=== PATIENT | male | born 1955 | race African-American/Black ===

== ENCOUNTER 2017-03-08 08:36 | Emergency (ER) | payer MEDICAID ==
[~2017-03-08] VITALS: Ht 162.6 cm; Wt 79.5 kg
[~2017-03-08 08:36] MED LIST: DICL75 PO; METO25 PO; ROBA750T3 PO
[2017-03-08 08:39] VITALS: BP 164/108; PULSE 84; TEMP 97.5; O2SAT 98
[2017-03-08 08:47] VITALS: BP 140/97; PULSE 80; RESP 16
[2017-03-08 09:18] VITALS: BP 153/104; PULSE 82; RESP 18; O2SAT 98
[2017-03-08 09:31] VITALS: BP 131/92; PULSE 79; RESP 18; O2SAT 98
--- NOTE | 2017-03-08 09:41 | PD ---
HPI Chief Complaint: Hypertension Time Seen by Provider: 09:36 Travel History International Travel<30 days: No Contact w/Intl Traveler<30days: No Traveled to known affect area: No History of Present Illness HPI This is a 41-year-old male who presents to the emergency department concerned that his blood pressure may be high. He was having headaches yesterday described in the back of his head, intermittent, mild, with no associated numbness, weakness, difficulty walking or difficulty talking. He is supposed to take metoprolol for his blood pressure. He currently doesn't have a primary care physician. PFSH Past Medical History Blood Disorders: No Anxiety: No Depression: Yes Cancer: No Cardiovascular Problems: Yes (HTN) Chemotherapy: No Diabetes: No Diminished Hearing: No Endocrine: No Genitourinary: No Hypertension: Yes Immune Disorder: No Implanted Vascular Access Dvce: Yes Musculoskeletal: No Neurologic: No Psychiatric: Yes Reproductive: No Respiratory: No Immunizations Current: No Radiation Therapy: No Renal Failure: Yes Thyroid Disease: No Past Surgical History Surgical History: No Previous Surgery Abdominal Surgery: No Cardiac Surgery: No Ear Surgery: No Endocrine Surgery: No Eye Surgery: No Genitourinary Surgery: No Gynecologic Surgery: No Oral Surgery: No Thoracic Surgery: No Social History Alcohol Use: Yes (OCC) Tobacco Use: No Substance Use: No Allergies-Medications (Allergen,Severity, Reaction): Coded Allergies: No Known Allergies (Verified , 03/08/17) Reported Meds & Prescriptions Reported Meds & Active Scripts Active Review of Systems Except as stated in HPI: all other systems reviewed are Neg Physical Exam Narrative GENERAL:Well appearing, no acute distress SKIN: Focused skin assessment warm and dry. HEAD: Atraumatic. Normocephalic. EYES: Pupils equal and round. No injection or drainage. ENT: Moist mucous membranes NECK: Trachea midline. CARDIOVASCULAR: Regular rate and rhythm. No murmur appreciated. RESPIRATORY: Clear to auscultation. Breath sounds equal bilaterally. GASTROINTESTINAL: Abdomen soft, non-tender, nondistended. MUSCULOSKELETAL: No obvious deformities. NEUROLOGICAL: Awake and alert. No obvious cranial nerve deficits. Moving all extremities. PSYCHIATRIC: Appropriate mood and affect; insight and judgment normal. Data Data Last Documented VS Vital Signs Date Time Temp Pulse Resp B/P Pulse Ox O2 Delivery O2 Flow Rate FiO2 03/08/17 09:31 79 18 131/92 98 Room Air 03/08/17 08:39 97.5 MDM Medical Decision Making Medical Screen Exam Complete: Yes Emergency Medical Condition: Yes Interpretation(s) Afebrile, mild hypertension improved in the ER Differential Diagnosis Hypertension, hypertensive urgency, hypertensive emergency, subarachnoid hemorrhage Narrative Course This is a 61-year-old male who presents to the emergency department reporting high blood pressure and headache. The patient currently says he feels fine. His blood pressure is 130/90. I think he is appropriate to follow up with a primary care physician. I don't think this reflects an emergency at this time. His normal neurologic exam. Patient was discharged. Diagnosis Primary Impression: Hypertension Qualified Code: I10 - Essential hypertension Patient Instructions: General Instructions Additional Instructions: If you develop severe chest pain, shortness of breath, sweating, lightheadedness , dizziness or difficulty breathing return to the emergency department immediately. Followup with your primary care physician in 2-3 days if your symptoms are not resolved. Med/Other Pt SpecificInfo: No Change to Meds Disposition: 01 DISCHARGE HOME Condition: Stable Samreen Rucker MD Mar 08, 2017 09:40
== END 2017-03-08 10:07 | disposition home or self-care (01) ==
LOC: NEPD 08:36
DX: I10 Essential (primary) hypertension (principal); R51 Headache; Z87.448 Personal history of other diseases of urinary system; Z86.59 Personal history of other mental and behavioral disorders
CPT/HCPCS: 99283

== ENCOUNTER 2017-09-21 09:25 | Emergency (ER) | payer MEDICAID ==
[~2017-09-21] VITALS: Ht 160 cm; Wt 77.5 kg
[2017-09-21 09:27] VITALS: BP 174/102; PULSE 78; RESP 18; TEMP 98.1; O2SAT 95
[2017-09-21 10:16] VITALS: BP 158/102; PULSE 76; RESP 18; TEMP 98.1; O2SAT 96
[2017-09-21] MEDS ORDERED: METO25TA3 PO (10:26)
--- NOTE | 2017-09-21 10:27 | PD ---
HPI Chief Complaint: Headache Time Seen by Provider: 10:17 Travel History International Travel<30 days: No Contact w/Intl Traveler<30days: No Traveled to known affect area: No History of Present Illness HPI This is a 62-year-old male who presents to the emergency department with headaches that have been going on for 2 weeks, intermittent, gradual in onset, moderate severity, with no associated vomiting, photophobia, numbness or weakness. He says he was gets headaches when he is out of his blood pressure medication. He is not sure the name of his blood pressure medicine that he used to be on. He has [employer] but doesn't have a primary care doctor. He denies any chest pain or trouble breathing. PFSH Past Medical History Blood Disorders: No Anxiety: No Depression: Yes Cancer: No Cardiovascular Problems: Yes (HTN) Chemotherapy: No Diabetes: No Diminished Hearing: No Endocrine: No Genitourinary: No Headaches: Yes Hypertension: Yes Immune Disorder: No Implanted Vascular Access Dvce: Yes Musculoskeletal: No Neurologic: No Psychiatric: Yes Reproductive: No Respiratory: No Immunizations Current: No Radiation Therapy: No Renal Failure: Yes Thyroid Disease: No Tetanus Vaccination: Unknown Past Surgical History Abdominal Surgery: No Cardiac Surgery: No Ear Surgery: No Endocrine Surgery: No Eye Surgery: No Genitourinary Surgery: No Gynecologic Surgery: No Oral Surgery: No Thoracic Surgery: No Social History Alcohol Use: Yes (OCC) Tobacco Use: No Substance Use: No Allergies-Medications (Allergen,Severity, Reaction): Coded Allergies: No Known Allergies (Verified Adverse Reaction, Unknown, 09/21/17) Reported Meds & Prescriptions Reported Meds & Active Scripts Active No Active Prescriptions or Reported Medications Review of Systems Except as stated in HPI: all other systems reviewed are Neg Physical Exam Narrative GENERAL:Well appearing, no acute distress SKIN: Focused skin assessment warm and dry. HEAD: Atraumatic. Normocephalic. EYES: Pupils equal and round. No injection or drainage. ENT: Moist mucous membranes NECK: Trachea midline. CARDIOVASCULAR: Regular rate and rhythm. No murmur appreciated. RESPIRATORY: Clear to auscultation. Breath sounds equal bilaterally. GASTROINTESTINAL: Abdomen soft, non-tender, nondistended. MUSCULOSKELETAL: No obvious deformities. NEUROLOGICAL: Awake and alert. No obvious cranial nerve deficits. No dysarthria or aphasia. No upper or lower extremity drift. No upper extremity ataxia. PSYCHIATRIC: Appropriate mood and affect; insight and judgment normal. Data Data Last Documented VS Vital Signs Date Time Temp Pulse Resp B/P (MAP) Pulse Ox O2 Delivery O2 Flow Rate FiO2 09/21/17 10:16 98.1 76 18 158/102 (120) 96 Room Air MDM Medical Decision Making Medical Screen Exam Complete: Yes Emergency Medical Condition: Yes Interpretation(s) Afebrile, no tachycardia, hypertensive Differential Diagnosis Hypertension, hypertensive urgency, hypertensive emergency, subarachnoid hemorrhage, migraine headache, tension headache Narrative Course This is a 62-year-old male who presents to the emergency department with headache. He has been out of his blood pressure medications for several months and he thinks this is the reason for his headaches. I did offer him an IV and migraine medication but he declined. He has a normal neurologic exam. This seems to be a subacute headache. I think he will benefit from a refill from his blood pressure medication and I referred him to [facility]. Diagnosis Primary Impression: Hypertension Qualified Codes: I10 - Essential (primary) hypertension Med/Other Pt SpecificInfo: Prescription(s) given Scripts Metoprolol Tartrate (Metoprolol Tartrate) 25 Mg Tab 25 MG PO BID, #60 TAB 0 Refills Prov: Samreen Rucker MD 09/21/17 Disposition: 01 DISCHARGE HOME Condition: Stable Samreen Rucker MD Sep 21, 2017 10:27
[2017-09-21] MEDS ORDERED: METOPROLOL TARTRATE 25 MG TAB PO ONE (10:45)
[2017-09-21 11:33] VITALS: BP 143/90
== END 2017-09-21 11:34 | disposition home or self-care (01) ==
LOC: NEPD 09:25
DX: R51 Headache (principal); F32.9 Major depressive disorder, single episode, unspecified; I12.9 Hypertensive chronic kidney disease with stage 1 through stage 4 chronic kidney disease, or unspecified chronic kidney disease; N18.9 Chronic kidney disease, unspecified
CPT/HCPCS: 99283

== ENCOUNTER 2018-02-20 10:10 | Emergency (ER) | payer MEDICAID ==
[~2018-02-20] VITALS: Ht 157.5 cm; Wt 80.0 kg
[~2018-02-20 10:10] MED LIST changes: -DICL75 PO; -METO25 PO; +METO25TA3 PO; -ROBA750T3 PO
[2018-02-20 10:30] VITALS: BP 155/102; PULSE 95; RESP 16; TEMP 98.2; O2SAT 98
[2018-02-20] MEDS ORDERED: NAPR500T2 PO (11:01)
--- NOTE | 2018-02-20 11:05 | PD ---
HPI Chief Complaint: Pain: Acute or Chronic Time Seen by Provider: 10:45 Travel History International Travel<30 days: No Contact w/Intl Traveler<30days: No Traveled to known affect area: No History of Present Illness HPI 62-year-old male presents for evaluation of neck pain. Symptoms started 1 week ago. Reports a mild occasional twinge of pain in the right posterior neck region which is reproduced when he turns his neck. He has pain currently however. He does not recall any injury. He denies any cough, congestion, sore throat, chest pain, shortness of breath, numbness or tingling or weakness in extremities. He has no other complaints at this time. PFSH Past Medical History Blood Disorders: No Anxiety: No Depression: Yes Cancer: No Cardiovascular Problems: Yes (HTN) Chemotherapy: No Diabetes: No Diminished Hearing: No Endocrine: No Genitourinary: No Headaches: Yes Hypertension: Yes Immune Disorder: No Implanted Vascular Access Dvce: Yes Musculoskeletal: No Neurologic: No Psychiatric: Yes Reproductive: No Respiratory: No Immunizations Current: No Radiation Therapy: No Renal Failure: Yes Thyroid Disease: No Past Surgical History Abdominal Surgery: No Cardiac Surgery: No Ear Surgery: No Endocrine Surgery: No Eye Surgery: No Genitourinary Surgery: No Gynecologic Surgery: No Oral Surgery: No Thoracic Surgery: No Social History Alcohol Use: Yes (OCC) Tobacco Use: No Substance Use: No Allergies-Medications (Allergen,Severity, Reaction): Coded Allergies: No Known Allergies (Verified Adverse Reaction, Unknown, 02/20/18) Reported Meds & Prescriptions Reported Meds & Active Scripts Active Naproxen 500 Mg Tab 500 Mg PO BID 10 Days Metoprolol Tartrate 25 Mg Tab 25 Mg PO BID Review of Systems Except as stated in HPI: all other systems reviewed are Neg Physical Exam Narrative GENERAL: Well-developed well-nourished male in no acute distress SKIN: Warm and dry. HEAD: Atraumatic. Normocephalic. EYES: Pupils equal and round. No scleral icterus. No injection or drainage. ENT: No nasal bleeding or discharge. Mucous membranes pink and moist. NECK: Trachea midline. No JVD. CARDIOVASCULAR: Regular rate and rhythm. No murmur appreciated. RESPIRATORY: No accessory muscle use. Clear to auscultation. Breath sounds equal bilaterally. GASTROINTESTINAL: Abdomen soft, non-tender, nondistended. Hepatic and splenic margins not palpable. MUSCULOSKELETAL: No obvious deformities. The patient maintains full range of motion of the extremities and neck. He has no reproducible tenderness to palpation. NEUROLOGICAL: Awake and alert. No obvious cranial nerve deficits. Motor grossly within normal limits. Normal speech. Data Data Last Documented VS Vital Signs Date Time Temp Pulse Resp B/P (MAP) Pulse Ox O2 Delivery O2 Flow Rate FiO2 02/20/18 10:30 98.2 95 16 155/102 (119) 98 MDM Medical Decision Making Medical Screen Exam Complete: Yes Emergency Medical Condition: Yes Medical Record Reviewed: Yes Differential Diagnosis Cervical strain, spasm, degenerative disc disease, herniated nucleus pulposus Narrative Course Physical examination is benign. He appears to have a mild right-sided neck strain. He will be discharged with a short course of naproxen. Diagnosis Primary Impression: Cervical strain Additional Instructions: Medication as needed. Avoid strenuous activity. Follow-up with primary care physician in 2 weeks. Return for any emergent medical conditions. Med/Other Pt SpecificInfo: Prescription(s) given Scripts Naproxen (Naproxen) 500 Mg Tab 500 MG PO BID for 10 Days, #20 TAB 0 Refills Prov: Kirill Goodwin MD 02/20/18 Disposition: 01 DISCHARGE HOME Condition: Stable Luis Alberto Ortiz Feb 20, 2018 11:05
== END 2018-02-20 11:14 | disposition home or self-care (01) ==
LOC: NEPK 10:10
DX: S16.1XXA Strain of muscle, fascia and tendon at neck level, initial encounter (principal); X58.XXXA Exposure to other specified factors, initial encounter
CPT/HCPCS: 99283

== ENCOUNTER 2018-04-04 10:28 | Emergency (ER) | payer MEDICAID ==
[~2018-04-04] VITALS: Ht 165.1 cm; Wt 77.2 kg
[~2018-04-04 10:28] MED LIST changes: +NAPR500T2 PO
[2018-04-04 10:39] VITALS: BP 193/104; PULSE 74; RESP 18; TEMP 97.6; O2SAT 97
[2018-04-04 11:19] VITALS: BP 159/106
--- NOTE | 2018-04-04 11:23 | PD ---
HPI Chief Complaint: Chest Pain Time Seen by Provider: 11:04 Travel History International Travel<30 days: No Contact w/Intl Traveler<30days: No Traveled to known affect area: No History of Present Illness HPI The patient is a 62-year-old -[place] male who presents to the emergency department for chest pain. The patient states he developed chest pain on Tuesday. The chest pain is substernal, intermittent, described as "achy ", and only last for several seconds. The patient states the pain will occur at rest, however, if he gets up and walks around the pain will disappear. He does complain of intermittent shortness of breath not attributed or associated with the chest pain. He denies any nausea, vomiting, or diaphoresis. The patient does note a history of hypertension and has been noncompliant for several months in regards to his medications. He does not have a local primary physician. He denies any known history of hyperlipidemia, diabetes, tobacco use , or coronary artery disease. He denies any previous stress test. Symptoms are moderate. PFSH Past Medical History Blood Disorders: No Anxiety: No Depression: Yes Cancer: No Cardiovascular Problems: Yes (HTN) Chemotherapy: No Diabetes: No Diminished Hearing: No Endocrine: No Genitourinary: No Headaches: Yes Hypertension: Yes Immune Disorder: No Implanted Vascular Access Dvce: Yes Musculoskeletal: No Neurologic: No Psychiatric: Yes Reproductive: No Respiratory: No Immunizations Current: No Radiation Therapy: No Renal Failure: Yes Thyroid Disease: No Past Surgical History Surgical History: No Previous Surgery Abdominal Surgery: No Cardiac Surgery: No Ear Surgery: No Endocrine Surgery: No Eye Surgery: No Genitourinary Surgery: No Gynecologic Surgery: No Oral Surgery: No Thoracic Surgery: No Social History Alcohol Use: Yes (OCC) Tobacco Use: No Substance Use: No Allergies-Medications (Allergen,Severity, Reaction): Coded Allergies: No Known Allergies (Verified Adverse Reaction, Unknown, 04/04/18) Reported Meds & Prescriptions Reported Meds & Active Scripts Active Naproxen 500 Mg Tab 500 Mg PO BID 10 Days Metoprolol Tartrate 25 Mg Tab 25 Mg PO BID Review of Systems Except as stated in HPI: all other systems reviewed are Neg General / Constitutional: No: Fever HENT: No: Lightheadedness Cardiovascular: Positive: Chest Pain or Discomfort, No: Diaphoresis Respiratory: Positive: Shortness of Breath Gastrointestinal: No: Nausea, Vomiting Musculoskeletal: No: Edema Neurologic: No: Dizziness Physical Exam Narrative GENERAL: Awake, alert, pleasant 62-year-old male who appears his stated age and is in no acute respiratory distress. SKIN: Focused skin assessment warm/dry. HEAD: Atraumatic. Normocephalic. EYES: No injection or drainage. ENT: No nasal bleeding or discharge. Mucous membranes pink and moist. NECK: Trachea midline. No JVD. CARDIOVASCULAR: Regular rate and rhythm. No murmur appreciated. Palpation of the chest wall does not reproduce symptoms. RESPIRATORY: No accessory muscle use. Clear to auscultation. Breath sounds equal bilaterally. GASTROINTESTINAL: Abdomen soft, non-tender, nondistended. Hepatic and splenic margins not palpable. MUSCULOSKELETAL: No obvious deformities. No clubbing. No cyanosis. No edema. NEUROLOGICAL: Awake and alert. Asymmetric right facial droop. Patient is able to wrinkle his eyebrows symmetrically. Upper and lower extremities within normal limits. PSYCHIATRIC: Appropriate mood and affect; insight and judgment normal. Data Data Last Documented VS Vital Signs Date Time Temp Pulse Resp B/P (MAP) Pulse Ox O2 Delivery O2 Flow Rate FiO2 04/04/18 14:35 67 14 163/105 (124) 96 Room Air 04/04/18 10:39 97.6 Orders Orders Electrocardiogram (04/04/18 11:18) Ckmb (Isoenzyme) Profile (04/04/18 11:18) Complete Blood Count With Diff (04/04/18 11:18) Comprehensive Metabolic Panel (04/04/18 11:18) Magnesium (Mg) (04/04/18 11:18) Prothrombin Time / Inr (Pt) (04/04/18 11:18) Act Partial Throm Time (Ptt) (04/04/18 11:18) Troponin I (04/04/18 11:18) Lipase (04/04/18 11:18) Chest, Single Ap (04/04/18 11:18) Ecg Monitoring (04/04/18 11:18) Bilateral Bp Monitoring (04/04/18 11:18) Iv Access Insert/Monitor (04/04/18 11:18) Oximetry (04/04/18 11:18) Oxygen Administration (04/04/18 11:18) Aspirin Chew (Aspirin Chew) (04/04/18 11:30) Sodium Chloride 0.9% Flush (Ns Flush) (04/04/18 11:30) Sodium Chlorid 0.9% 500 Ml Inj (Ns 500 M (04/04/18 11:30) CKMB (04/04/18 11:20) CKMB% (04/04/18 11:20) Troponin I (04/04/18 14:20) Ed Discharge Order (04/04/18 15:22) Labs Laboratory Tests Test 04/04/18 11:20 04/04/18 14:30 White Blood Count 6.0 TH/MM3 Red Blood Count 5.60 MIL/MM3 Hemoglobin 15.4 GM/DL Hematocrit 46.7 % Mean Corpuscular Volume 83.3 FL Mean Corpuscular Hemoglobin 27.5 PG Mean Corpuscular Hemoglobin Concent 33.1 % Red Cell Distribution Width 15.8 % Platelet Count 236 TH/MM3 Mean Platelet Volume 7.9 FL Neutrophils (%) (Auto) 47.1 % Lymphocytes (%) (Auto) 41.3 % Monocytes (%) (Auto) 8.8 % Eosinophils (%) (Auto) 1.7 % Basophils (%) (Auto) 1.1 % Neutrophils # (Auto) 2.8 TH/MM3 Lymphocytes # (Auto) 2.5 TH/MM3 Monocytes # (Auto) 0.5 TH/MM3 Eosinophils # (Auto) 0.1 TH/MM3 Basophils # (Auto) 0.1 TH/MM3 CBC Comment DIFF FINAL Differential Comment Prothrombin Time 10.7 SEC Prothromb Time International Ratio 1.1 RATIO Activated Partial Thromboplast Time 28.4 SEC Blood Urea Nitrogen 13 MG/DL Creatinine 1.39 MG/DL Random Glucose 89 MG/DL Total Protein 8.3 GM/DL Albumin 4.2 GM/DL Calcium Level 9.5 MG/DL Magnesium Level 2.2 MG/DL Alkaline Phosphatase 55 U/L Aspartate Amino Transf (AST/SGOT) 18 U/L Alanine Aminotransferase (ALT/SGPT) 41 U/L Total Bilirubin 0.5 MG/DL Sodium Level 139 MEQ/L Potassium Level 4.5 MEQ/L Chloride Level 103 MEQ/L Carbon Dioxide Level 28.1 MEQ/L Anion Gap 8 MEQ/L Estimat Glomerular Filtration Rate 63 ML/MIN Total Creatine Kinase 186 U/L Creatine Kinase MB 0.7 NG/ML Troponin I LESS THAN 0.02 NG/ML LESS THAN 0.02 NG/ML Lipase 86 U/L MDM Medical Decision Making Medical Screen Exam Complete: Yes Emergency Medical Condition: Yes Medical Record Reviewed: Yes Interpretation(s) EKG reveals normal sinus rhythm with a rate of 74. No ischemic changes or ectopy noted. Last Impressions Chest X-Ray 04/04/18 1118 Signed Impressions: Service Date/Time: Wednesday, April 04, 2018 11:25 - CONCLUSION: 1. No acute cardiopulmonary disease. Damien Gray MD Laboratory Tests Test 04/04/18 11:20 04/04/18 14:30 White Blood Count 6.0 TH/MM3 Red Blood Count 5.60 MIL/MM3 Hemoglobin 15.4 GM/DL Hematocrit 46.7 % Mean Corpuscular Volume 83.3 FL Mean Corpuscular Hemoglobin 27.5 PG Mean Corpuscular Hemoglobin Concent 33.1 % Red Cell Distribution Width 15.8 % Platelet Count 236 TH/MM3 Mean Platelet Volume 7.9 FL Neutrophils (%) (Auto) 47.1 % Lymphocytes (%) (Auto) 41.3 % Monocytes (%) (Auto) 8.8 % Eosinophils (%) (Auto) 1.7 % Basophils (%) (Auto) 1.1 % Neutrophils # (Auto) 2.8 TH/MM3 Lymphocytes # (Auto) 2.5 TH/MM3 Monocytes # (Auto) 0.5 TH/MM3 Eosinophils # (Auto) 0.1 TH/MM3 Basophils # (Auto) 0.1 TH/MM3 CBC Comment DIFF FINAL Differential Comment Prothrombin Time 10.7 SEC Prothromb Time International Ratio 1.1 RATIO Activated Partial Thromboplast Time 28.4 SEC Blood Urea Nitrogen 13 MG/DL Creatinine 1.39 MG/DL Random Glucose 89 MG/DL Total Protein 8.3 GM/DL Albumin 4.2 GM/DL Calcium Level 9.5 MG/DL Magnesium Level 2.2 MG/DL Alkaline Phosphatase 55 U/L Aspartate Amino Transf (AST/SGOT) 18 U/L Alanine Aminotransferase (ALT/SGPT) 41 U/L Total Bilirubin 0.5 MG/DL Sodium Level 139 MEQ/L Potassium Level 4.5 MEQ/L Chloride Level 103 MEQ/L Carbon Dioxide Level 28.1 MEQ/L Anion Gap 8 MEQ/L Estimat Glomerular Filtration Rate 63 ML/MIN Total Creatine Kinase 186 U/L Creatine Kinase MB 0.7 NG/ML Troponin I LESS THAN 0.02 NG/ML LESS THAN 0.02 NG/ML Lipase 86 U/L Differential Diagnosis Differential diagnosis includes acute coronary syndrome, GERD, esophageal spasm , pulmonary embolism, costochondritis, pancreatitis, pericarditis, myocarditis. Narrative Course IV was established, labs are drawn and sent, and the patient was placed on cardiac telemetry monitoring and continuous pulse oximetry monitoring. EKG was ordered and interpreted. Chest x-ray was obtained. The patient received aspirin 162 mg orally. The patient's chest x-ray was unremarkable. The patient 's initial troponin was less than 0.02. The patient's symptoms are atypical, however, he is a 62-year-old male with hypertension. I did discussion with the patient regarding 23 hour observation in the chest pain center, however, he would prefer to be discharged home. Therefore, second troponin was ordered, was less than 0.02. The patient will be placed on Norvasc for his blood pressure, is advised to follow-up with a primary physician and take a baby aspirin daily. Diagnosis Primary Impression: Atypical chest pain Additional Impression: Hypertension Qualified Codes: I10 - Essential (primary) hypertension Patient Instructions: General Instructions Additional Instructions: Take a baby aspirin daily. Norvasc as directed. Follow-up with a primary physician for outpatient stress test. Return if symptoms worsen or progress. Med/Other Pt SpecificInfo: Prescription(s) given Scripts Amlodipine (Norvasc) 5 Mg Tab 5 MG PO DAILY for Blood Pressure Management, #30 TAB 0 Refills Prov: Amanuel Landers MD 04/04/18 Disposition: 01 DISCHARGE HOME Condition: Stable Amanuel Landers MD April 04, 2018 11:23
[2018-04-04] MEDS ORDERED: SODIUM CHLORID 0.9% 500 ML INJ 500 ML IV ONE (11:30)
[2018-04-04] MEDS ORDERED: SODIUM CHLORIDE 0.9% FLUSH 10 ML FLUSH IVF PRN (11:30)
[2018-04-04] MEDS ORDERED: ASPIRIN 81 MG CHEW TAB PO ONE (11:30)
[2018-04-04 11:33] VITALS: RESP 16; O2SAT 97
[2018-04-04 11:37] LABS: AUTOMATED NEUTROPHIL # 2.8 TH/MM3 (1.8-7.7); BASOPHIL # 0.1 TH/MM3 (0-0.2); BASOPHIL % 1.1 % (0.0-2.0); EOSINOPHIL # 0.1 TH/MM3 (0-0.4); EOSINOPHIL % 1.7 % (0.0-4.0); HEMATOCRIT 46.7 % (39.0-51.0); HEMOGLOBIN 15.4 GM/DL (13.0-17.0); LYMPH % 41.3 % (9.0-44.0); LYMPHOCYTE # 2.5 TH/MM3 (1.0-4.8); MEAN CELL VOLUME 83.3 FL (80.0-100.0); MEAN CORPUSCULAR HEMOGLOBIN 27.5 PG (27.0-34.0); MEAN CORPUSCULAR HGB CONC 33.1 % (32.0-36.0); MEAN PLATELET VOLUME 7.9 FL (7.0-11.0); MONO % 8.8 % (0.0-8.0); MONOCYTE # 0.5 TH/MM3 (0-0.9); NEUT % 47.1 % (16.0-70.0); PLATELET COUNT 236 TH/MM3 (150-450); RED CELL DISTRIBUTION WIDTH 15.8 % (11.6-17.2)
[2018-04-04 11:47] LABS: INTERNATIONAL NORMALIZED RATIO 1.1 RATIO; PROTHROMBIN TIME - PATIENT 10.7 SEC (9.8-11.6)
[2018-04-04 12:04] LABS: ALBUMIN 4.2 GM/DL (3.4-5.0); ALT (GPT) 41 U/L (12-78); AST (GOT) 18 U/L (15-37); BICARBONATE 28.1 MEQ/L (21.0-32.0); BLOOD UREA NITROGEN 13 MG/DL (7-18); CALCIUM 9.5 MG/DL (8.5-10.1); CHLORIDE 103 MEQ/L (98-107); CREATININE 1.39 MG/DL (0.60-1.30); GLOMERULAR FILTRATION RATE 63 ML/MIN (>89); GLUCOSE,RANDOM 89 MG/DL (74-106); MAGNESIUM 2.2 MG/DL (1.5-2.5); SODIUM (NA) 139 MEQ/L (136-145)
--- NOTE | 2018-04-04 12:05 | RADRPT ---
EXAM DATE/TIME: 04/04/2018 11:25 [facility] COMPARISON: CHEST SINGLE AP, August 18, 2016, 15:42. INDICATIONS : Chest pains with shortness of breath. MEDICAL HISTORY : None. SURGICAL HISTORY : None. ENCOUNTER: Initial ACUITY: 1 day PAIN SCORE: 6/10 LOCATION: Bilateral chest FINDINGS: A single view of the chest demonstrates the lungs to be symmetrically aerated without evidence of mas s, infiltrate or effusion. The cardiomediastinal contours are unremarkable. Osseous structures are intact. CONCLUSION: 1. No acute cardiopulmonary disease. Damien Gray MD on April 04, 2018 at 12:03 Board Certified Radiologist. This report was verified electronically.
[2018-04-04 12:08] LABS: ALKALINE PHOSPHATASE 55 U/L (45-117); TOTAL BILIRUBIN ADULT 0.5 MG/DL (0.2-1.0); TOTAL PROTEIN 8.3 GM/DL (6.4-8.2); TROPONIN I LESS THAN 0.02 NG/ML (0.02-0.05)
[2018-04-04 14:35] VITALS: BP 163/105; PULSE 67; RESP 14; O2SAT 96
[2018-04-04] MEDS ORDERED: AMLO5 PO (15:24)
--- NOTE | 2018-04-04 18:07 | EKG ---
Date Performed: 04/04/2018 Time Performed: 10:47:59 PTAGE: 62 years EKG: Sinus rhythm MODERATE VOLTAGE CRITERIA FOR LVH, CONSIDER NORMAL VARIANT BORDERLINE ECG PREVIOUS TRACING : 05/28/2016 10.42 Since the previous tracing, no significant change noted DOCTOR: Reyna Genao Interpretating Date/Time 04/04/2018 18:06:31
== END 2018-04-04 16:04 | disposition home or self-care (01) ==
LOC: NEPC 10:28
DX: R07.89 Other chest pain (principal); I10 Essential (primary) hypertension; Z79.899 Other long term (current) drug therapy
CPT/HCPCS: 71045; 80053; 82550; 82552; 83690; 83735; 84484; 85025; 85610; 85730; 93005; 96360; 99285; J7040